=== PATIENT | male | born 1985 | race African-American/Black ===

== ENCOUNTER 2016-04-06 12:20 | Emergency (ER) | payer OTHER ==
[~2016-04-06] VITALS: Ht 182.9 cm; Wt 80.7 kg
[2016-04-06] MEDS ORDERED: IBUPROFEN 200200 M1 PO (12:24)
[2016-04-06] MEDS ORDERED: MOBIC15 MG PO (13:18)
[2016-04-06] MEDS ORDERED: PENICILLIN VK500 M1 PO (13:18)
[2016-04-06 13:54] VITALS: BP 115/72
== END 2016-04-06 13:55 | disposition home or self-care (01) ==
LOC: ER 12:20
DX: K08.89 Other specified disorders of teeth and supporting structures (principal); Z88.8 Allergy status to other drugs, medicaments and biological substances; F17.200 Nicotine dependence, unspecified, uncomplicated; F10.99 Alcohol use, unspecified with unspecified alcohol-induced disorder

== ENCOUNTER 2018-01-02 16:47 | Emergency (ER) | payer OTHER ==
[~2018-01-02] VITALS: Ht 182.9 cm; Wt 80.7 kg
[~2018-01-02 16:47] MED LIST: AMOXICILLIN875 MG PO; CYCLOBENZAPRINE5 MG PO; IBUPROFEN 200200 M1 PO; MOBIC15 MG PO; PENICILLIN VK500 M1 PO; PHENERGAN 25 MG25 M1 PO
[2018-01-02 17:19] VITALS: BP 131/78
[2018-01-02] MEDS ORDERED: ELIMITE60 GM TOP (18:46)
[2018-01-02] MEDS ORDERED: BENADRYL25 MG PO (18:48)
== END 2018-01-02 18:55 | disposition home or self-care (01) ==
LOC: ER 16:47
DX: L29.9 Pruritus, unspecified (principal); B88.8 Other specified infestations

== ENCOUNTER 2018-08-14 13:35 | Emergency (ER) | payer OTHER ==
[~2018-08-14] VITALS: Ht 182.9 cm; Wt 77.1 kg
[~2018-08-14 13:35] MED LIST changes: +BENADRYL25 MG PO; +ELIMITE60 GM TOP
[2018-08-14 14:52] LABS: AMP/METHAMP POSITIVE (Negative); BARBITURATES Negative (Negative); BENZODIAZEPINES Negative (Negative); COCAINE Negative (Negative); METHADONE Negative (Negative); OPIATES Negative (Negative); PCP Negative (Negative)
[2018-08-14] MEDS ORDERED: BENADRYL25 MG PO (14:57)
[2018-08-14] MEDS ORDERED: PREDNISONE 20 M20 M1 PO (14:57)
[2018-08-14 15:05] VITALS: BP 149/103
== END 2018-08-14 15:06 | disposition home or self-care (01) ==
LOC: ER 13:35
PROVIDERS: Physician Assistant
DX: T78.1XXA Other adverse food reactions, not elsewhere classified, initial encounter (principal); L29.8 Other pruritus; F17.210 Nicotine dependence, cigarettes, uncomplicated; Z88.8 Allergy status to other drugs, medicaments and biological substances; X58.XXXA Exposure to other specified factors, initial encounter

== ENCOUNTER 2018-10-05 17:58 | Emergency (ER) | payer OTHER ==
[~2018-10-05] VITALS: Ht 177.8 cm; Wt 72.1 kg
[~2018-10-05 17:58] MED LIST changes: +PREDNISONE 20 M20 M1 PO
[2018-10-05] MEDS ORDERED: TRIPLE ANTIB28.35 GM TOP (18:28)
[2018-10-05 19:20] VITALS: BP 138/92
== END 2018-10-05 19:21 | disposition home or self-care (01) ==
LOC: ER 17:58
DX: S10.81XA Abrasion of other specified part of neck, initial encounter (principal); L72.3 Sebaceous cyst; F17.210 Nicotine dependence, cigarettes, uncomplicated; Z88.8 Allergy status to other drugs, medicaments and biological substances; X58.XXXA Exposure to other specified factors, initial encounter; Y93.89 Activity, other specified; Y92.89 Other specified places as the place of occurrence of the external cause; Y99.8 Other external cause status

== ENCOUNTER 2019-04-13 16:40 | Emergency (ER) | payer OTHER ==
[~2019-04-13] VITALS: Ht 185.4 cm; Wt 83.5 kg
[~2019-04-13 16:40] MED LIST changes: +TRIPLE ANTIB28.35 GM TOP
[2019-04-13] MEDS ORDERED: KEFLEX500 M2 PO (18:22)
[2019-04-13 19:00] VITALS: BP 122/76
== END 2019-04-13 19:00 | disposition home or self-care (01) ==
LOC: ER 16:40
DX: S81.011A Laceration without foreign body, right knee, initial encounter (principal); W26.0XXA Contact with knife, initial encounter; Y92.89 Other specified places as the place of occurrence of the external cause; Y93.02 Activity, running; Y99.8 Other external cause status

== ENCOUNTER 2019-09-23 11:19 | Emergency (ER) | payer OTHER ==
[~2019-09-23] VITALS: Ht 182.9 cm; Wt 77.6 kg
[~2019-09-23 11:19] MED LIST changes: +KEFLEX500 M2 PO
[2019-09-23 14:05] VITALS: BP 127/66
== END 2019-09-23 14:05 | disposition home or self-care (01) ==
LOC: ER 11:19
DX: M62.838 Other muscle spasm (principal); F10.129 Alcohol abuse with intoxication, unspecified; T50.905A Adverse effect of unspecified drugs, medicaments and biological substances, initial encounter; F17.210 Nicotine dependence, cigarettes, uncomplicated; Z79.2 Long term (current) use of antibiotics; Y92.89 Other specified places as the place of occurrence of the external cause; Y90.9 Presence of alcohol in blood, level not specified